=== PATIENT | female | born 1970 | race Two or more races ===

== ENCOUNTER 2019-01-12 08:36 | Inpatient (IN) | payer MEDICAID ==
[~2019-01-12] VITALS: Ht 175.3 cm; Wt 75.5 kg
[~2019-01-12 08:36] MED LIST: ALBU18; ALPR1TAB7; FAMO-12; FLUT50SP13; FURO20TA3; HYDR-2616; HYDRX10T; IBUP800T24; ZOLP5TAB5; [UNRECOGNIZED DRUG - CODE] OT
[2019-01-12] MEDS ORDERED: SODIUM CHLORIDE 0.9% 500 ML IV ONE (08:51)
[2019-01-12 09:10] LABS: Urine Bacteria FEW /hpf (None Seen); Urine Blood Negative /uL (Negative); Urine Specific Gravity 1.024 (1.001-1.035); Urine WBC 1 /hpf (0 - 5)
[2019-01-12 09:10] LABS: Basophils # (auto) 0 uL; Basophils % (auto) 0.7 % (0.0-2.0); Eosinophils # (auto) 0.1 uL; Eosinophils % (auto) 1.5 % (0.0-7.0); Hematocrit 41.6 % (36.0-46.0); Hemoglobin 13.9 g/dL (12.2-16.2); Lymphocytes # (auto) 2.2 uL; Lymphocytes % (auto) 33.8 % (10.0-50.0); Mean Corpuscular Hemoglobin 30.9 pg (28.0-32.0); Mean Corpuscular Hgb Conc. 33.4 g/dL (32.0-36.0); Mean Corpuscular Volume 92.5 fL (80.0-100.0); Monocytes # (auto) 0.5 uL; Monocytes % (auto) 7.8 % (0.0-12.0); Neutrophils # (auto) 3.6 uL; Neutrophils % (auto) 56.2 % (37.0-80.0); Nucleated Red Blood Cells % 0.1 %; Platelet Count (auto) 249 10^3/uL (140-450); White Blood Cell 6.4 10^3/uL (4.4-10.8)
[2019-01-12 09:30] LABS: Albumin 3.4 g/dL (3.4-5.0); BUN/Creatinine Ratio 20.7; Calcium 9.1 mg/dL (8.5-10.1); Potassium 3.4 mmol/L (3.5-5.1)
[2019-01-12 09:31] LABS: Bilirubin, Total 0.9 mg/dL (0.2-1.0); Total Protein 7.3 g/dL (6.4-8.2)
[2019-01-12] MEDS ORDERED: D5W/SOD CHLO 0.9% 1,000 ML IV ONE (10:00)
[2019-01-12] MEDS ORDERED: DEXTROSE (50%) 50ML SYRG IV ONE ×2 (10:00→11:00)
[2019-01-12] MEDS ORDERED: DEXTROSE 50% SYRINGE 50 ML IV ONE (10:03)
[2019-01-12] MEDS ORDERED: traMADol HCL 50 MG TAB PO PRN (11:00)
[2019-01-12] MEDS ORDERED: MORPHINE SULF INJ 2 MG/ML SYRINGE 1ML IV PRN ×2 (11:00)
[2019-01-12] MEDS ORDERED: NITROGLYCERIN 0.4 MG SL TAB SL PRN (11:00)
[2019-01-12] MEDS ORDERED: ONDANSETRON HCL 4 MG/2 ML VIAL IV PRN (11:00)
[2019-01-12] MEDS ORDERED: LORazepam 0.5 MG TAB PO PRN (11:00)
[2019-01-12] MEDS: D5W/ SOD CHL 0.9%/KCL 20MEQ 1,000 ML IV SCH ×2 (11:43→21:47)
[2019-01-12 12:06] LABS: Alcohol, Urine < 3.0 mg/dL (0-5); Amphetamine Screen, Urine NEGATIVE (NEGATIVE); Barbiturate Scree,Urine NEGATIVE (NEGATIVE); Benzodiazephine Screen, Urine NEGATIVE (NEGATIVE); Cannabinoid Screen, Urine NEGATIVE (NEGATIVE); Cocaine Screen, Urine NEGATIVE (NEGATIVE); Opiate Scree,Urine NEGATIVE (NEGATIVE); Phencyclidine Screen, Urine NEGATIVE (NEGATIVE)
[2019-01-12] MEDS: ACCU-CHEK COMFORT CURVE STRIP VI SCH ×4 (12:13→20:05)
[2019-01-12 12:19] VITALS: BP 118/72
--- NOTE | 2019-01-12 12:19 | NUR ---
Telemetry admit from ER EFREN YOUNG admitted to Telemetry unit after SBAR received from NATHAN Joy. Patient oriented to Mervat Sullivan, primary RN, unit, room, bed, and unit policies regarding patient care and visiting hours. Patient now on continuous telemetry monitoring. Bed set to lowest position/locked, bedside rails up x2, call light within reach. Instructed patient to call for assistance. Patient verbalized understanding. Will continue to monitor q1hr and PRN.
[2019-01-12] MEDS ORDERED: CHOL20007 PO (13:50)
[2019-01-12] MEDS ORDERED: MIRT1TAB38 PO (13:50)
[2019-01-12] MEDS ORDERED: TEMA30CA5 PO (13:50)
[2019-01-12] MEDS ORDERED: FOLI1TAB6 PO (13:50)
[2019-01-12] MEDS ORDERED: LURA40TA PO (13:50)
[2019-01-12] MEDS ORDERED: DULO60CA PO (13:50)
--- NOTE | 2019-01-12 14:00 | NUR ---
BLOOD GLUCOSE PATIENT BLOOD GLUCOSE 92, WILL CONTINUE TO MONITOR.
--- NOTE | 2019-01-12 16:03 | NUR ---
BLOOD GLUCOSE PATIENT BLOOD GLUCOSE 83, WILL CONTINUE TO MONITOR.
[2019-01-12] MEDS: ACETAMINOPHEN 500 MG TAB PO PRN (16:09)
--- NOTE | 2019-01-12 16:20 | NUR ---
HOSPITALIST PAGED HOSPITALIST RE: ACCU CHECK, AWAITING CALL BACK.
--- NOTE | 2019-01-12 16:25 | NUR ---
HOSPITALIST SPOKE TO ELIAS RE: ACCU CHECK. NEW ORDERS GIVE/CARRIED OUT.
[2019-01-12] MEDS ORDERED: DEXTROSE (50%) 50ML SYRG IV PRN (16:30)
[2019-01-12 16:59] VITALS: BP 120/75
--- NOTE | 2019-01-12 20:05 | NUR ---
Blood sugar of 68. Kane juice with regular sugar given to pt.
[2019-01-12] MEDS: TEMAZEPAM 15 MG CAP PO PRN (20:57)
[2019-01-12 21:54] VITALS: BP 111/65
[2019-01-12] MEDS ORDERED: TEMAZEPAM 15 MG CAP PO ONE (23:00)
[2019-01-13] MEDS: ACCU-CHEK COMFORT CURVE STRIP VI SCH ×6 (00:14→20:00)
[2019-01-13 05:00] VITALS: BP 128/74
[2019-01-13] MEDS: D5W/ SOD CHL 0.9%/KCL 20MEQ 1,000 ML IV SCH ×2 (05:04→12:52)
--- NOTE | 2019-01-13 07:40 | NUR ---
OPENING NOTE ASSUMED CARE OF PATIENT. ALERT AND ORIENTED. NO S/S OF SOB/DISTRESS NOTED. SAFETY PRECAUTIONS IN PLACE. BEDSIDE TO LOWEST POSITION/LOCKED. BEDSIDE RAILS UP X2. CALL LIGHT WITHIN REACH. INSTRUCT PATIENT TO CALL FOR ASSISTANCE. UPDATED ON POC. PATIENT VERBALIZED UNDERSTANDING. WILL CONTINUE TO MONITOR Q1HR AND PRN.
--- NOTE | 2019-01-13 08:05 | NUR ---
BLOOD GLUCOSE PATIENT BLOOD GLUCOSE 75, WILL CONTINUE TO MONITOR.
[2019-01-13] MEDS: FAMOTIDINE 20 MG TAB PO SCH (08:39)
[2019-01-13] MEDS ORDERED: ADENOSINE 62 MG in GIVE UN-DILUTED 0 ML IV STA (08:58)
[2019-01-13 09:23] VITALS: BP 127/79
--- NOTE | 2019-01-13 11:30 | NUR ---
BACK ON UNIT PATIENT BACK ON UNIT VIA WHEELCHAIR. NO S/S OF SOB/DISTRESS NOTED. WILL CONTINUE TO MONITOR.
--- NOTE | 2019-01-13 11:45 | NUR ---
BLOOD GLUCOSE PATIENT BLOOD GLUCOSE OF 67. ORANGE JUICE PROVIDE. WILL CONTINUE TO MONITOR.
--- NOTE | 2019-01-13 12:05 | NUR ---
EKG SEEN AND SIGNED BY DR. FRAUSTO. PLACED IN PATIENTS CHART.
[2019-01-13 12:31] LABS: Anion Gap 5 (5-15); Blood Urea Nitrogen 5 mg/dL (7-18); Carbon Dioxide 27 mmol/L (21-32); Chloride 107 mmol/L (98-107); Glucose 94 mg/dL (74-106); Magnesium 2.1 mg/dL (1.6-2.6); Potassium 4.4 mmol/L (3.5-5.1); Sodium 139 mmol/L (136-145)
[2019-01-13 12:36] LABS: BUN/Creatinine Ratio 11.9; GFR African American 206 mL/min; GFR Non-African American 170 mL/min
[2019-01-13 13:00] VITALS: BP 134/83
[2019-01-13 13:36] LABS: Folate (Folic Acid) 15.9 ng/mL (5.38-24)
[2019-01-13 15:36] LABS: INR 0.95 (0.9-1.15)
--- NOTE | 2019-01-13 16:00 | NUR ---
BLOOD GLUCOSE PATIENT BLOOD GLUCOSE OF 63. ORANGE JUICE PROVIDE. WILL CONTINUE TO MONITOR.
[2019-01-13 17:00] VITALS: BP 104/66
--- NOTE | 2019-01-13 19:30 | NUR ---
Opening Shift Note Assumed care of patient, awake and alert. No S/S of distress/SOB or pain. Instructed on POC and to be NPO after MN, for LHC tomorrow. Instructed to call for assist PRN, patient verbalized understanding, call light within reach, will continue to monitor for changes Q1hr and PRN.
--- NOTE | 2019-01-13 20:10 | NUR ---
Skin Lifter Bacon at bedside
[2019-01-13] MEDS: TEMAZEPAM 15 MG CAP PO PRN (21:05)
[2019-01-13 21:54] VITALS: BP 121/68
[2019-01-14] MEDS: D5W/ SOD CHL 0.9%/KCL 20MEQ 1,000 ML IV SCH ×3 (03:30→23:00)
[2019-01-14] MEDS: ACCU-CHEK COMFORT CURVE STRIP VI SCH ×7 (04:19→23:54)
[2019-01-14 04:47] LABS: Basophils # (auto) 0 uL; Basophils % (auto) 0.8 % (0.0-2.0); Eosinophils # (auto) 0.1 uL; Eosinophils % (auto) 2.5 % (0.0-7.0); Hematocrit 36.1 % (36.0-46.0); Lymphocytes # (auto) 2.2 uL; Lymphocytes % (auto) 37.5 % (10.0-50.0); Mean Corpuscular Hemoglobin 30.6 pg (28.0-32.0); Mean Corpuscular Hgb Conc. 33.3 g/dL (32.0-36.0); Mean Corpuscular Volume 91.9 fL (80.0-100.0); Monocytes # (auto) 0.5 uL; Monocytes % (auto) 8.7 % (0.0-12.0); Neutrophils # (auto) 2.9 uL; Neutrophils % (auto) 50.5 % (37.0-80.0); Nucleated Red Blood Cells % 0.1 %; Platelet Count (auto) 193 10^3/uL (140-450); Red Blood Cells 3.93 10^6/uL (4.0-5.20); Red Cell Distribution Width 13.8 % (11.8-14.3); White Blood Cell 5.8 10^3/uL (4.4-10.8)
[2019-01-14 05:05] LABS: BUN/Creatinine Ratio 18.2; Calcium 8.5 mg/dL (8.5-10.1); Potassium 4.3 mmol/L (3.5-5.1)
[2019-01-14 05:11] LABS: INR 0.97 (0.9-1.15); Partial Thromboplastin Time 25.5 sec (23.64-32.05)
[2019-01-14 05:33] VITALS: BP 108/76
--- NOTE | 2019-01-14 08:06 | NUR ---
CALLED BUSINESS ADMINISTRATION PROGRAM CHAIR, PT LHC WILL BE THIS AFTERNOON.
--- NOTE | 2019-01-14 08:08 | NUR ---
PT BLOOD SUGAR 68, CALLED NOVELTY PRINTING MACHINE OPERATOR AND ASKED IF PT CAN HAVE OJ. LACHO REPORTS SHE CAN, WILL GIVE OJ.
[2019-01-14 08:42] LABS: Hepatitis B Surface Antibody Negative
[2019-01-14 09:00] VITALS: BP 114/74
--- NOTE | 2019-01-14 09:14 | NUR ---
RECHECKED BS, BS NOW 78. PT REPORTS NO DISTRESS DIZZINESS OR SHAKINESS.
[2019-01-14 09:16] LABS: Hepatitis A Total Antibody Negative
[2019-01-14 09:42] LABS: Hepatitis B Core Total AB Negative; Hepatitis B Surface Antigen Negative (Negative); Hepatitis C Antibody Negative (Negative)
[2019-01-14] MEDS: FAMOTIDINE 20 MG TAB PO SCH (11:03)
[2019-01-14] MEDS: ACETAMINOPHEN 500 MG TAB PO PRN (12:29)
--- NOTE | 2019-01-14 12:30 | NUR ---
PT BS IS 77, PT REPORTS HEAD ACHE, PRN TYLENOL GIVEN.
[2019-01-14] MEDS ORDERED: LIDOCAINE 2%HCL (LOCAL ANESTH.) INJ 20ML MDV ONE (12:42)
[2019-01-14] MEDS ORDERED: IOHEXOL 350 MG/ML 100ML IJ ONE (12:42)
--- NOTE | 2019-01-14 12:45 | NUR ---
PT TAKEN TO TERRA COTTA MOLD MAKER FOR LHC, AT BEDSIDE AND AWARE, NO DISTRESS NOTED.
[2019-01-14 13:00] VITALS: BP 110/73
[2019-01-14] MEDS ORDERED: fentaNYL CITRATE 100 MCG/2 ML VL ONE (13:25)
[2019-01-14] MEDS ORDERED: MIDAZOLAM HCL 1MG/1ML-2 ML VIAL ONE (13:25)
[2019-01-14] MEDS ORDERED: ANGIOMAX 250 MG VIAL IV ONE (13:25)
[2019-01-14] MEDS ORDERED: VERAPAMIL 2.5MG/ML INJ 2ML VIAL IV ONE (13:25)
[2019-01-14] MEDS ORDERED: SODIUM CHL 0.9% 0 ML ONE (13:26)
[2019-01-14] MEDS ORDERED: HEPARIN SODIUM (PORCINE) 5000 UNITS/ML 1ML VIAL ONE (13:44)
--- NOTE | 2019-01-14 15:09 | NUR ---
PT RETURNED TO FLOOR FROM JAVASCRIPT APPLICATION DEVELOPER VIA BED, NO DISTRESS NOTED. VITALS:117/71, HR 63, 02 99, RR 18, 97.5. PT REQUESTED SANDWICH AND JUICE, ITEMS BROUGHT. DEFLATED 2CC AIR FROM RADIAL VASC BAND.
--- NOTE | 2019-01-14 15:34 | NUR ---
DEFLATED ANOTHER 2 CC AIR FROM REDIAL BAND PER CNC MACHINE SETTER NURSE INSTRUCTION. WILL CONTINUE TO DEFLATE 22 Q 15 MINS UNTIL FULLY DEFLATED BY 1630. Addendum: 01/14/19 at 1728 by EVELYN BERUMEN RN PT REPORTS SHE WOULD LIKE TO GO HOME. CALLED PBRoberto AND PAGED DR FRAUSTO. AWAITING CALL BACK.
--- NOTE | 2019-01-14 16:24 | NUR ---
RADIAL BAND REMOVED. 2X2 GAUZE AND TEGADERM APPLIED TO INCISION, NO BLEEDING NOTED AT SITE.
[2019-01-14 17:00] VITALS: BP 123/75
--- NOTE | 2019-01-14 17:26 | NUR ---
PT BS 214. PT REPORTS SHE JUST FINISHED EATING BEDSIDE SNACKS, WILL CONTINUE TO MONITOR.
--- NOTE | 2019-01-14 19:40 | NUR ---
Opening Shift Note Assumed care of patient, awake and alert. No S/S of distress/SOB or pain. Dressing to right wrist dry and intact, no bleeding noted, pulses palpable. Instructed on POC and to call for assist PRN, patient verbalized understanding, call light within reach, will continue to monitor for changes Q1hr and PRN.
[2019-01-14] MEDS: TEMAZEPAM 15 MG CAP PO PRN (21:17)
[2019-01-14 22:00] VITALS: BP 103/51
[2019-01-15] MEDS: ACCU-CHEK COMFORT CURVE STRIP VI SCH ×3 (04:00→14:37)
[2019-01-15 06:29] VITALS: BP 109/62
--- NOTE | 2019-01-15 08:38 | NUR ---
0800 ACCUCHECK DONE, BS 66, REQUESTED PT GO BACK ON HER FLUIDS, PT AGREED. OJ GIVEN TO PATIENT, RECHECKED BS, BS NOW 151. PT REPORTS NO DISTRESS OR PAIN AT THIS TIME AND REPORTS SHE WOULD LIKE GO HOME TODAY.
[2019-01-15 09:00] VITALS: BP 120/72
[2019-01-15] MEDS: FAMOTIDINE 20 MG TAB PO SCH (10:07)
[2019-01-15] MEDS: D5W/ SOD CHL 0.9%/KCL 20MEQ 1,000 ML IV SCH (10:08)
--- NOTE | 2019-01-15 12:22 | NUR ---
REPORTS PT IS DISCHARGED. PT REPORTS SHE WANTS HER IV OUT AND DOES NOT WANT TELE BOX ON ANYMORE. EDUCATED PT IV AND TELE NEEDS TO STAY UNTIL RIGHT BEFORE DC. PT REFUSES, SHE REPORTS SHE WANTS TO GO HOME. IV DC'D AND PRESSURE DRESSING APPLIED, TELE BOX REMOVED AND SENT BACK.
--- NOTE | 2019-01-15 12:25 | NUR ---
BS 76 ON ACCU CHECK.
[2019-01-15 13:00] VITALS: BP 125/73
[2019-01-15 13:52] VITALS: BP 126/72
== END 2019-01-15 14:00 | disposition home or self-care (01) | DRG 192 ==
LOC: ER 08:39 → TELE 08:40 → TELE-WESTW 13:19
PROVIDERS: ADMIT Nurse Practitioner Acute Care; ATTEND Internal Medicine
PROC: B2111ZZ Fluoroscopy of Multiple Coronary Arteries using Low Osmolar Contrast (ICD-10-PCS; principal; 2019-01-14)
PROC: 4A023N7 Measurement of Cardiac Sampling and Pressure, Left Heart, Percutaneous Approach (ICD-10-PCS; 2019-01-14)
PROC: B2151ZZ Fluoroscopy of Left Heart using Low Osmolar Contrast (ICD-10-PCS; 2019-01-14)
DX: R07.89 Other chest pain (principal); E46 Unspecified protein-calorie malnutrition; M32.9 Systemic lupus erythematosus, unspecified; E16.2 Hypoglycemia, unspecified; F41.9 Anxiety disorder, unspecified; E87.6 Hypokalemia; M79.7 Fibromyalgia; F32.9 Major depressive disorder, single episode, unspecified; Z98.84 Bariatric surgery status; Z80.0 Family history of malignant neoplasm of digestive organs; Z83.3 Family history of diabetes mellitus; Z85.41 Personal history of malignant neoplasm of cervix uteri; Z90.711 Acquired absence of uterus with remaining cervical stump; Z90.49 Acquired absence of other specified parts of digestive tract; Z68.24 Body mass index [BMI] 24.0-24.9, adult; Z88.5 Allergy status to narcotic agent
CPT/HCPCS: 36415; 71045; 76700; 78452; 80048; 80053; 80307; 81001; 82105; 82607; 82746; 82962; 83036; 83525; 83615; 83735; 84443; 84484; 84702; 85025; 85610; 85730; 86300; 86301; 86304; 86703; 86704; 86706; 86708; 86803; 86850; 86900; 86901; 87340; 93005; 93017; 93306; 93458; 94761; 96361; 96374; 96376; 99152; G0378; J0153; J2250; J7042

== ENCOUNTER → 2019-09-11 | Emergency (ER) | payer MEDICAID ==
[~2019-09-11] VITALS: Ht 177.8 cm; Wt 99.8 kg
[~2019-09-11] MED LIST changes: -ALBU18; -ALPR1TAB7; +ASPirin 81 mg TAB PO ONE; +CHOL20007 PO; +CLOPIDOGREL BISULFATE 75 MG TAB PO ONE; +DULO60CA PO; -FAMO-12; -FLUT50SP13; +FOLI1TAB6 PO; -FURO20TA3; -HYDR-2616; -HYDRX10T; -IBUP800T24; +LURA40TA PO; +MIRT1TAB38 PO; +TEMA30CA5 PO; -ZOLP5TAB5
[2019-09-11 12:29] LABS: Basophils # (auto) 0 10 ^3/uL (0-0.2); Basophils % (auto) 0.7 % (0.0-2.0); Eosinophils # (auto) 0.1 10 ^3/uL (0-0.8); Hematocrit 39.8 % (36.0-46.0); Lymphocytes # (auto) 2.1 10 ^3/uL (0.4-5.4); Lymphocytes % (auto) 32.1 % (10.0-50.0); Mean Corpuscular Hemoglobin 28.4 pg (28.0-32.0); Mean Corpuscular Hgb Conc. 32.7 g/dL (32.0-36.0); Mean Corpuscular Volume 86.9 fL (80.0-100.0); Monocytes # (auto) 0.8 10 ^3/uL (0-1.3); Monocytes % (auto) 11.5 % (0.0-12.0); Neutrophils # (auto) 3.5 10 ^3/uL (1.6-8.6); Neutrophils % (auto) 53.7 % (37.0-80.0); Nucleated Red Blood Cells % 0.1 %; Platelet Count (auto) 262 10^3/uL (140-450); Red Blood Cells 4.58 10^6/uL (4.0-5.20); Red Cell Distribution Width 14.9 % (11.8-14.3); White Blood Cell 6.6 10^3/uL (4.4-10.8)
[2019-09-11 13:08] LABS: Alanine Aminotransferase 20 U/L (13-56); Albumin 3.4 g/dL (3.4-5.0); Anion Gap 7 (5-15); Aspartate Aminotransferase 17 U/L (15-37); BUN/Creatinine Ratio 17.9; Blood Urea Nitrogen 14 mg/dL (7-18); Calcium 9.2 mg/dL (8.5-10.1); Carbon Dioxide 24 mmol/L (21-32); Chloride 106 mmol/L (98-107); GFR African American 101 mL/min; GFR Non-African American 83 mL/min; Glucose 85 mg/dL (74-106); Potassium 4.1 mmol/L (3.5-5.1); Sodium 137 mmol/L (136-145)
[2019-09-11 13:13] LABS: Alkaline Phosphatase 73 U/L (45-117); Bilirubin, Total 0.5 mg/dL (0.2-1.0); Total Protein 7.3 g/dL (6.4-8.2)
[2019-09-11 14:07] VITALS: BP 134/79
[2019-09-11 15:24] LABS: Urine Bacteria FEW /hpf (None Seen); Urine Blood Negative /uL (Negative); Urine Hyaline Cast FEW /lpf (0 - 2); Urine Specific Gravity 1.009 (1.001-1.035); Urine WBC 3 /hpf (0 - 5)
== END | disposition home or self-care (01) ==
LOC: ER 11:25
DX: G45.9 Transient cerebral ischemic attack, unspecified (principal); M54.12 Radiculopathy, cervical region; N39.0 Urinary tract infection, site not specified
CPT/HCPCS: 36415; 70450; 71046; 72125; 80053; 81001; 84484; 85025; 93005